=== PATIENT | male | born 1965 | race Caucasian/White ===

== ENCOUNTER 2021-07-27 12:11 | Emergency (ER) | payer OTHER ==
[~2021-07-27 12:11] MED LIST: BACLOFEN 10MG T10 MG PO; PERCOCET 5-3251 EACH PO; VOLTAREN **OUT50 MG PO
[2021-07-27] MEDS ORDERED: PERCOCET 5-3251 EACH PO (14:47)
[2021-07-27] MEDS ORDERED: MEDROL 4MG DOSEP4 MG PO (14:47)
[2021-07-30] MEDS ORDERED: CYCLOBENZAPRINE10 MG PO (16:57)
== END 2021-07-27 15:16 | disposition home or self-care (01) ==
LOC: FER 12:11
DX: S42.032A Displaced fracture of lateral end of left clavicle, initial encounter for closed fracture (principal); S22.32XD Fracture of one rib, left side, subsequent encounter for fracture with routine healing; F17.210 Nicotine dependence, cigarettes, uncomplicated; V86.59XA Driver of other special all-terrain or other off-road motor vehicle injured in nontraffic accident, initial encounter
CPT/HCPCS: 71101; 73000; 94010; J1885

== ENCOUNTER → 2021-08-01 | Day surgery (SDC) | payer OTHER ==
[~2021-08-01] VITALS: Ht 180.3 cm; Wt 74.8 kg
[~2021-08-01] MED LIST changes: +CYCLOBENZAPRINE10 MG PO; +MEDROL 4MG DOSEP4 MG PO
[2021-08-01 08:10] LABS: HCT 44.7 % (42.0-52.0); HGB 14.8 g/dl (13.2-18.0); MCH 31.2 pg (25.0-31.0); MCHC 33.1 g/dL (32.0-36.0); MCV 94.1 fL (78.0-100.0); MPV 11.5 fL (6.0-9.5); RBC 4.75 M/uL (4.70-6.00); RDW 13.5 % (11.5-14.0); WBC 10.4 K/uL (4.0-10.5)
[2021-08-01 08:31] LABS: ALBUMIN 3.6 g/dL (3.4-5.0); BILIRUBIN - TOTAL 0.5 mg/dL (0.2-1.0); BUN/CREAT RATIO (CALC) 17.4 RATIO; CREATININE 0.69 mg/dL (0.67-1.17); GLOBULIN (CALCULATION) 3.6 g/dL; POTASSIUM 4.7 mmol/L (3.5-5.1); TOTAL PROTEIN 7.2 g/dL (6.4-8.2)
== END | disposition home or self-care (01) ==
LOC: FAS 07:26
PROVIDERS: Orthopaedic Surgery
DX: S42.032A Displaced fracture of lateral end of left clavicle, initial encounter for closed fracture (principal); V89.9XXA Person injured in unspecified vehicle accident, initial encounter; I07.1 Rheumatic tricuspid insufficiency
CPT/HCPCS: 36415; 80053; C1713; J0690; J1100; J1170; J1885; J2250; J2405; J2704; J3010; J7120